=== PATIENT | male | born 1965 | race Caucasian/White ===

== ENCOUNTER 2020-04-03 07:24 | Emergency (ER) | payer MEDICAID ==
[~2020-04-03] VITALS: Ht 175.3 cm; Wt 67.0 kg
[2020-04-03] MEDS ORDERED: LIDOcaine 40mg/ml topical solution MM ONE (07:50)
[2020-04-03] MEDS ORDERED: LIDOcaine 4% (40 mg/ml) topical solution 50ml MM ONE (07:50)
[2020-04-03] MEDS ORDERED: clindamycin 600mg/D5W 50ml 50 ML IV ONE (08:25)
[2020-04-03 09:05] VITALS: BP 143/78
[2020-04-03] MEDS ORDERED: CLIN-97 PO (09:14)
[2020-04-03] MEDS ORDERED: CHLO473M3 PO (09:14)
[2020-04-03] MEDS ORDERED: HYDR-3965 PO (09:14)
== END 2020-04-03 09:31 | disposition home or self-care (01) ==
LOC: ER 07:25
DX: K04.7 Periapical abscess without sinus (principal); K02.9 Dental caries, unspecified; I10 Essential (primary) hypertension; E11.9 Type 2 diabetes mellitus without complications; F17.200 Nicotine dependence, unspecified, uncomplicated; Z88.0 Allergy status to penicillin
CPT/HCPCS: 41800; 82948; 96365; 99284; J3490

== ENCOUNTER 2022-05-27 08:35 | Emergency (ER) | payer MEDICAID ==
[~2022-05-27] VITALS: Ht 175.3 cm; Wt 81.0 kg
[~2022-05-27 08:35] MED LIST: CHLO473M3 PO; CLIN-97 PO
[2022-05-27 08:52] VITALS: BP 166/88
[2022-05-27] MEDS ORDERED: CLIN300C54 PO (09:34)
== END 2022-05-27 08:55 | disposition home or self-care (01) ==
LOC: ER 08:36
DX: K04.7 Periapical abscess without sinus (principal); K05.10 Chronic gingivitis, plaque induced; I10 Essential (primary) hypertension; E11.9 Type 2 diabetes mellitus without complications; Z88.0 Allergy status to penicillin; Z79.899 Other long term (current) drug therapy; Z79.1 Long term (current) use of non-steroidal anti-inflammatories (NSAID)
CPT/HCPCS: 99283